=== PATIENT | male | born 1945 | race Two or more races ===

== ENCOUNTER 2020-03-06 17:24 | Inpatient (IN) | payer OTHER ==
[~2020-03-06] VITALS: Ht 167.6 cm; Wt 88.9 kg
[2020-03-06] MEDS ORDERED: CLOP75TA15 PO ×2 (17:36→17:39)
[2020-03-06] MEDS ORDERED: CARV25TA PO (17:39)
[2020-03-06] MEDS ORDERED: CHOL500050 PO (17:39)
[2020-03-06] MEDS ORDERED: HYDR-894 PO (18:00)
[2020-03-06] MEDS ORDERED: VENL37.591 PO (18:00)
[2020-03-06] MEDS ORDERED: SILD50TA PO (18:00)
[2020-03-06] MEDS ORDERED: DIVA125T2 PO (18:00)
[2020-03-06] MEDS ORDERED: POTA10CA43 PO (18:00)
[2020-03-06] MEDS ORDERED: METF-442 PO (18:00)
[2020-03-06] MEDS ORDERED: GLIP10TA11 PO (18:00)
[2020-03-06] MEDS ORDERED: MOME13HF IH (18:00)
[2020-03-06] MEDS ORDERED: MULT-594 PO (18:00)
[2020-03-06] MEDS ORDERED: LISI10TA5 PO (18:00)
[2020-03-06 18:36] LABS: *BILIRUBIN,URIN NEGATIVE (NEGATIVE); *BLOOD, URINE NEGATIVE (NEGATIVE); *CLARITY,URINE CLEAR (CLEAR); *COLOR,URINE YELLOW (YELLOW); *KETONES,URINE NEGATIVE (NEGATIVE); *UROBILINOGEN,URINE 0.2 E.U./dl (NORMAL); LEUKOCYTE ESTERASE ,URINE NEGATIVE (NEGATIVE); NITRITE, URINE NEGATIVE (NEGATIVE); PH,URINE 5.5 (5.0-8.0)
[2020-03-06 18:38] LABS: UGLUCOSE 1+ (NEGATIVE)
[2020-03-06 18:53] LABS: *AMPHETAMINE, URINE NEGATIVE (NEGATIVE); *CANNABINOID, URINE NEGATIVE (NEGATIVE); *COCCAINE, URINE NEGATIVE (NEGATIVE); *OPIATE, URINE NEGATIVE (NEGATIVE); *PHENCYCLIDINE SCREEN,URINE NEGATIVE (NEGATIVE)
[2020-03-06 19:02] LABS: BACTERIA,URINE NONE SEEN /HPF (NONE SEEN); RBC,URINE 0-3 /HPF (0-3); SQUAMOUS EPITHELIAL CELL,UR NONE SEEN /HPF (NONE SEEN); WBC,URINE 0-3 /HPF (0-3)
[2020-03-06 20:46] LABS: BASOPHILS # (AUTO) 0.2 K/uL (0.0-8.0); BASOPHILS % (AUTO) 2.7 % (0.0-2.0); EOSINOPHILS % (AUTO) 0.5 % (0.0-7.0); HEMATOCRIT 39.7 % (36.7-47.1); LYMPHOCYTES % (AUTO) 13.2 % (20.5-51.5); MEAN CORPUSCULAR HEMOGLOBIN 28.7 uug (23.8-33.4); MEAN CORPUSCULAR HGB CONC 33 g/dL (32.5-36.3); MEAN CORPUSCULAR VOLUME 87.5 fL (73.0-96.2); MONOCYTES # (AUTO) 0.4 K/uL (2.0-10.0); MONOCYTES % (AUTO) 5.8 % (0.0-11.0); NEUTROPHILS # (AUTO) 5.8 K/uL (1.8-8.9); NEUTROPHILS % (AUTO) 77.8 % (38.5-71.5); PLATELET COUNT (AUTO) 200 K/uL (152-348); RED BLOOD CELL COUNT(AUTO) 4.53 MIL/uL (4.06-5.63); WHITE BLOOD COUNT (AUTO) 7.4 K/uL (3.6-10.2)
[2020-03-06 20:54] LABS: CARBON DIOXIDE 28 mmol/L (21-32); CHLORIDE 102 mmol/L (98-107); CREATININE 0.9 mg/dL (0.6-1.3); GLUCOSE 153 mg/dL (74-106); POTASSIUM 4.3 mmol/L (3.5-5.1); UREA NITROGEN, BLOOD 18 mg/dL (7-18)
[2020-03-06 20:57] LABS: ETHANOL < 3 MG/DL (0-0)
[2020-03-06 21:00] LABS: ALANINE AMINOTRANSFERASE 44 U/L (16-63); ALKALINE PHOSPHATASE 115 U/L (50-136); ASPARTATE AMINOTRANSFERASE 19 U/L (15-37); BILIRUBIN,DIRECT 0.1 mg/dL (0.0-0.2); BILIRUBIN,TOTAL 0.4 mg/dL (0.2-1.0); TOTAL PROTEIN, SERUM 8.3 g/dL (6.4-8.2)
[2020-03-06 21:26] LABS: ACETAMINOPHEN < 2.0 ug/mL (10-30)
--- NOTE | 2020-03-06 21:30 | NUR ---
Pt. admitted to [facility] , under care of Dr. Hinds Belongs List completed. Report to TONNY Smith
[2020-03-06] MEDS ORDERED: LORAZEPAM 0.5 MG TABLET PO PRN (22:15)
[2020-03-06] MEDS ORDERED: MAG HYDROX/AL HYDROX/SIMETH 30 ML LIQUID UDC PO PRN (22:15)
[2020-03-06] MEDS ORDERED: MAGNESIUM HYDROXIDE 30 ML LIQUID UDC PO PRN (22:15)
[2020-03-06] MEDS ORDERED: BLOOD SUGAR DIAGNOSTIC 1 EACH STRIP VI ONE (22:15)
[2020-03-06 22:40] VITALS: BP 173/83
[2020-03-06] MEDS ORDERED: LISINOPRIL 10 MG TABLET PO SCH (23:00)
[2020-03-06] MEDS ORDERED: hydrALAZINE HCL 25 MG TABLET PO SCH (23:00)
[2020-03-06] MEDS: TEMAZEPAM 7.5 MG CAPSULE PO PRN (23:40)
[2020-03-07] MEDS ORDERED: hydrALAZINE HCL 25 MG TABLET ONE (00:01)
--- NOTE | 2020-03-07 02:02 | NUR ---
GPS: Admitted to unit earlier at 2200 a 74 yr.old male under the care and supervision of /CAROLIN Munoz in fair condition. Pt.is on a 72 hour hold for DTS/GD. Pt.stated that he wanted to end his life because of his physical pain and that he's been telling his licensed master social worker at the snf that he wants to get his family gun and end his life,per hold. Pt.strongly denied saying those things when asked by staff. Pt.is confused,disorganized,angry,uncooperative,irritable,argumentative during admission process. Refused to have body check done despite numerous attempts by staff. Refused to sign papers or hear staff's explanation regarding his reason for being admitted to the unit. Poor insight to present situation. Has unsteady gait and initially refusing to use a fww. Pts.advisement and pt's rights booklet handed to pt. Unit rules had to be explained several times. Needs anticipated. Denied pain at this time. Safety checks initiated. Will continue to re-direct prn.
--- NOTE | 2020-03-07 06:45 | NUR ---
GPS: Pt.slept 3.15 last night. Denied pain when asked. Got up x1 to go to the bathroom for elimination purposes. Reminded to use fww for ambulationl. Less irritable and argumentative. Re-directed prn. Denies wanting to hurt self.
[2020-03-07 07:30] VITALS: BP 160/83
[2020-03-07 08:23] LABS: BILIRUBIN,TOTAL 0.6 mg/dL (0.2-1.0); POTASSIUM 3.8 mmol/L (3.5-5.1); TOTAL PROTEIN, SERUM 7.6 g/dL (6.4-8.2)
[2020-03-07] MEDS: glipiZIDE 10 MG TABLET PO SCH ×2 (08:59→16:34)
[2020-03-07] MEDS: LISINOPRIL 10 MG TABLET PO SCH (08:59)
[2020-03-07] MEDS: CLOPIDOGREL 75 MG TABLET PO SCH (08:59)
[2020-03-07] MEDS: MULTIVITAMINS,THERAPEUTIC TABLET PO SCH (08:59)
[2020-03-07] MEDS: METFORMIN HCL 500 MG TABLET PO SCH ×2 (09:00→16:34)
[2020-03-07] MEDS: CARVEDILOL 25 MG TABLET PO SCH ×2 (09:00→20:12)
[2020-03-07] MEDS ORDERED: POTASSIUM CHLORIDE 10 MEQ TAB.PRT.SR PO SCH (09:00)
[2020-03-07] MEDS: hydrALAZINE HCL 25 MG TABLET PO SCH ×2 (09:01→16:34)
[2020-03-07] MEDS: CHOLECALCIFEROL 1,000 UNIT TABLET PO SCH (09:01)
[2020-03-07] MEDS: POTASSIUM CHLORIDE 20 MEQ TAB.PRT.SR PO SCH (12:07)
[2020-03-07] MEDS: ACETAMINOPHEN 325 MG TABLET PO PRN (12:33)
--- NOTE | 2020-03-07 12:53 | NUR ---
Firearms Report: System Operator completed and submitted a DOJ firearms report for 5150 danger to self and grave disability certification. A copy of report has been placed in patient chart.
--- NOTE | 2020-03-07 13:24 | NUR ---
SANDEE Initial Discharge Plan: Per 5150 states patient is from [facility]. This SW contacted patient's son Jimmy ([phone]) who stated patient will discharge back home upon discharge located at [address] [place] [id number]; ([phone]). This SW contacted [facility] ([phone]) and left a voicemail to Liliana to confirm. SW will coordinate proper discharge with MD and treatment team.
--- NOTE | 2020-03-07 13:24 | NUR ---
SANDEE Family Contact: SANDEE spoke with patient's son Jimmy ([phone]) to gather collateral and discussed treatment/discharge plan. Per son, upon discharge he would want pt back home.
--- NOTE | 2020-03-07 14:20 | NUR ---
UR Note: This SW contacted correctional case manager Jacqueline Tejada - / fax# [phone] clinicals. Per Jacqueline, she requires daily clinicals.
--- NOTE | 2020-03-07 14:55 | NUR ---
[facility] Contact: This SW spoke with Sharyn ([phone]) who stated pt lives at home and comes to [facility] to follow up with his primary doctor dr. Avila ([phone]).
--- NOTE | 2020-03-07 15:00 | NUR ---
Gps/Wood Calker- Patient verbalized adequate relief from his right knee pain,, was medicated with tylenol 650 mg. po, stayed in the activity group , had been quiet listening to the music. Krystin called earlier today wants to know progress of patient, informed of his present behavior and complaints.
--- NOTE | 2020-03-07 15:01 | NUR ---
SW Family Contact: SW spoke with patient's son Jimmy ([phone]) and discussed if there is guns in the house. The stated that pt is confused he just yells guns but they do not have guns in the house.
[2020-03-07] MEDS: DIVALPROEX 125 MG TABLET.DR PO SCH ×2 (15:25→16:35)
[2020-03-07 16:00] VITALS: BP 132/66
[2020-03-07] MEDS: FLUTICASONE/VILANTEROL 1 EACH BLST.W.DEV INH SCH (16:49)
--- NOTE | 2020-03-07 18:24 | NUR ---
Gps/Rn Gynecology- Had been cooperative with staff, discouraged patient from bitting the plastic spoons, claimed he needs a toothpick , offered toothbrush ,and toothpaste for his oral hygiene
[2020-03-07 20:00] VITALS: BP 158/75
[2020-03-08 07:30] VITALS: BP 148/79
[2020-03-08] MEDS: glipiZIDE 10 MG TABLET PO SCH ×2 (08:00→16:59)
[2020-03-08] MEDS: MULTIVITAMINS,THERAPEUTIC TABLET PO SCH (08:44)
[2020-03-08] MEDS: CLOPIDOGREL 75 MG TABLET PO SCH (08:44)
[2020-03-08] MEDS: METFORMIN HCL 500 MG TABLET PO SCH ×2 (08:44→17:00)
[2020-03-08] MEDS: CARVEDILOL 25 MG TABLET PO SCH ×2 (08:45→20:27)
[2020-03-08] MEDS: hydrALAZINE HCL 25 MG TABLET PO SCH ×2 (08:45→17:00)
[2020-03-08] MEDS: DIVALPROEX 125 MG TABLET.DR PO SCH ×3 (08:46→17:00)
[2020-03-08] MEDS: LISINOPRIL 10 MG TABLET PO SCH (08:46)
[2020-03-08] MEDS: POTASSIUM CHLORIDE 20 MEQ TAB.PRT.SR PO SCH (08:46)
[2020-03-08] MEDS: CHOLECALCIFEROL 1,000 UNIT TABLET PO SCH (08:47)
[2020-03-08] MEDS: FLUTICASONE/VILANTEROL 1 EACH BLST.W.DEV INH SCH (08:48)
[2020-03-08] MEDS: ACETAMINOPHEN 325 MG TABLET PO PRN (10:13)
--- NOTE | 2020-03-08 14:17 | NUR ---
UR Note: SANDEE faxed a clinical to [facility] with attn to Jacqueline ([phone]) to the fax number: [phone].
[2020-03-08 16:00] VITALS: BP 111/57
--- NOTE | 2020-03-08 17:30 | NUR ---
Gps/Director Of Instructional Technology- Ambulates around with front wheel walker, refused to eat dinner in the dinning room, stayed in his room. Had been cooperative with staff, safety reviewed and emphasized.
[2020-03-08 20:00] VITALS: BP 137/59
[2020-03-08] MEDS: DIVALPROEX 250 MG TABLET.DR PO SCH (20:27)
[2020-03-08] MEDS: TEMAZEPAM 7.5 MG CAPSULE PO PRN (20:32)
[2020-03-09] MEDS: glipiZIDE 10 MG TABLET PO SCH ×2 (06:33→16:29)
--- NOTE | 2020-03-09 06:43 | NUR ---
slept 8.5 hours. very cooperative, calm and no agitation, restlessness and compliant to his medications.
[2020-03-09 07:55] VITALS: BP 167/78
[2020-03-09] MEDS: CHOLECALCIFEROL 1,000 UNIT TABLET PO SCH (08:47)
[2020-03-09] MEDS: FLUTICASONE/VILANTEROL 1 EACH BLST.W.DEV INH SCH (08:47)
[2020-03-09] MEDS: MULTIVITAMINS,THERAPEUTIC TABLET PO SCH (08:48)
[2020-03-09] MEDS: LISINOPRIL 10 MG TABLET PO SCH (08:49)
[2020-03-09] MEDS: METFORMIN HCL 500 MG TABLET PO SCH ×2 (08:49→17:36)
[2020-03-09] MEDS: CARVEDILOL 25 MG TABLET PO SCH ×2 (08:50→20:31)
[2020-03-09] MEDS: DIVALPROEX 125 MG TABLET.DR PO SCH ×3 (08:50→16:29)
[2020-03-09] MEDS: hydrALAZINE HCL 25 MG TABLET PO SCH ×2 (08:50→16:30)
[2020-03-09] MEDS: CLOPIDOGREL 75 MG TABLET PO SCH (08:50)
[2020-03-09] MEDS: POTASSIUM CHLORIDE 20 MEQ TAB.PRT.SR PO SCH (08:51)
[2020-03-09] MEDS: HYDROCODONE/APAP 5-325MG TABLET PO PRN (12:52)
[2020-03-09 13:00] VITALS: BP 124/53
[2020-03-09] MEDS: DIVALPROEX 250 MG TABLET.DR PO SCH (20:31)
[2020-03-09 20:45] VITALS: BP 132/63
--- NOTE | 2020-03-10 06:19 | NUR ---
Slept 6.0 hours. Calm and cooperative. Self care and no complaint presented.
[2020-03-10] MEDS: glipiZIDE 10 MG TABLET PO SCH ×2 (06:44→16:55)
[2020-03-10 07:30] VITALS: BP 131/71
[2020-03-10] MEDS: METFORMIN HCL 500 MG TABLET PO SCH ×2 (08:54→18:00)
[2020-03-10] MEDS: DIVALPROEX 125 MG TABLET.DR PO SCH ×3 (08:54→16:55)
[2020-03-10] MEDS: CLOPIDOGREL 75 MG TABLET PO SCH (08:55)
[2020-03-10] MEDS: VITAMIN B COMPLEX 1 TABLET PO SCH (08:55)
[2020-03-10] MEDS: POTASSIUM CHLORIDE 20 MEQ TAB.PRT.SR PO SCH (08:55)
[2020-03-10] MEDS: CHOLECALCIFEROL 1,000 UNIT TABLET PO SCH (08:55)
[2020-03-10] MEDS: hydrALAZINE HCL 25 MG TABLET PO SCH ×2 (08:56→16:55)
[2020-03-10] MEDS: LISINOPRIL 10 MG TABLET PO SCH (08:56)
[2020-03-10] MEDS: CARVEDILOL 25 MG TABLET PO SCH ×2 (08:56→20:23)
[2020-03-10] MEDS: FLUTICASONE/VILANTEROL 1 EACH BLST.W.DEV INH SCH (08:57)
[2020-03-10] MEDS: HYDROCODONE/APAP 5-325MG TABLET PO PRN (11:48)
[2020-03-10 15:49] VITALS: BP 110/44
[2020-03-10 20:00] VITALS: BP 163/81
[2020-03-10] MEDS: DIVALPROEX 250 MG TABLET.DR PO SCH (20:27)
[2020-03-11] MEDS: glipiZIDE 10 MG TABLET PO SCH ×2 (06:21→16:41)
--- NOTE | 2020-03-11 06:50 | NUR ---
Slept 5.30 hours.
[2020-03-11 08:00] VITALS: BP 146/59
[2020-03-11] MEDS: VITAMIN B COMPLEX 1 TABLET PO SCH (09:19)
[2020-03-11] MEDS: CLOPIDOGREL 75 MG TABLET PO SCH (09:19)
[2020-03-11] MEDS: CHOLECALCIFEROL 1,000 UNIT TABLET PO SCH (09:19)
[2020-03-11] MEDS: DIVALPROEX 125 MG TABLET.DR PO SCH ×3 (09:19→16:41)
[2020-03-11] MEDS: FLUTICASONE/VILANTEROL 1 EACH BLST.W.DEV INH SCH (09:19)
[2020-03-11] MEDS: LISINOPRIL 10 MG TABLET PO SCH (09:20)
[2020-03-11] MEDS: METFORMIN HCL 500 MG TABLET PO SCH ×2 (09:20→17:36)
[2020-03-11] MEDS: POTASSIUM CHLORIDE 20 MEQ TAB.PRT.SR PO SCH (09:20)
[2020-03-11] MEDS: hydrALAZINE HCL 25 MG TABLET PO SCH ×2 (09:21→16:42)
[2020-03-11] MEDS: CARVEDILOL 25 MG TABLET PO SCH ×2 (09:21→20:10)
[2020-03-11] MEDS: HYDROCODONE/APAP 5-325MG TABLET PO PRN (09:42)
--- NOTE | 2020-03-11 10:56 | NUR ---
UR Note: This SW faxed outpatient case manager Jacqueline Ashley [facility] - / fax# [phone] clinicals. Per Jacqueline, she requires daily clinicals.
[2020-03-11 15:22] VITALS: BP 131/56
[2020-03-11 20:00] VITALS: BP 115/77
[2020-03-11] MEDS: DIVALPROEX 250 MG TABLET.DR PO SCH (20:03)
[2020-03-12 07:13] LABS: BASOPHILS % (AUTO) 0.2 % (0.0-2.0); EOSINOPHILS % (AUTO) 0.2 % (0.0-7.0); HEMATOCRIT 35.8 % (36.7-47.1); HEMOGLOBIN 11.9 g/dL (12.5-16.3); LYMPHOCYTES # (AUTO) 1.6 K/uL (20.0-40.0); LYMPHOCYTES % (AUTO) 25.5 % (20.5-51.5); MEAN CORPUSCULAR HEMOGLOBIN 28.9 uug (23.8-33.4); MEAN CORPUSCULAR HGB CONC 33 g/dL (32.5-36.3); MEAN CORPUSCULAR VOLUME 86.8 fL (73.0-96.2); MONOCYTES # (AUTO) 0.5 K/uL (2.0-10.0); MONOCYTES % (AUTO) 8.7 % (0.0-11.0); NEUTROPHILS # (AUTO) 4.1 K/uL (1.8-8.9); NEUTROPHILS % (AUTO) 65.4 % (38.5-71.5); PLATELET COUNT (AUTO) 170 K/uL (152-348); RED BLOOD CELL COUNT(AUTO) 4.12 MIL/uL (4.06-5.63); WHITE BLOOD COUNT (AUTO) 6.2 K/uL (3.6-10.2)
[2020-03-12 07:16] LABS: BILIRUBIN,TOTAL 0.3 mg/dL (0.2-1.0); POTASSIUM 4.3 mmol/L (3.5-5.1); TOTAL PROTEIN, SERUM 6.7 g/dL (6.4-8.2)
[2020-03-12] MEDS: METFORMIN HCL 500 MG TABLET PO SCH ×2 (09:33→17:16)
[2020-03-12] MEDS: VITAMIN B COMPLEX 1 TABLET PO SCH (09:33)
[2020-03-12] MEDS: POTASSIUM CHLORIDE 20 MEQ TAB.PRT.SR PO SCH (09:33)
[2020-03-12] MEDS: glipiZIDE 10 MG TABLET PO SCH ×2 (09:33→16:26)
[2020-03-12] MEDS: CHOLECALCIFEROL 1,000 UNIT TABLET PO SCH (09:33)
[2020-03-12] MEDS: CLOPIDOGREL 75 MG TABLET PO SCH (09:34)
[2020-03-12] MEDS: DIVALPROEX 125 MG TABLET.DR PO SCH ×2 (09:34→12:51)
[2020-03-12] MEDS: CARVEDILOL 25 MG TABLET PO SCH ×2 (09:36→20:07)
[2020-03-12] MEDS: hydrALAZINE HCL 25 MG TABLET PO SCH ×2 (09:36→16:26)
[2020-03-12] MEDS: FLUTICASONE/VILANTEROL 1 EACH BLST.W.DEV INH SCH (09:37)
[2020-03-12] MEDS: LISINOPRIL 10 MG TABLET PO SCH (09:38)
--- NOTE | 2020-03-12 11:50 | NUR ---
UR Note: SW called and left a voicemail for Jacqueline Tejada ( fax#: [phone]) to call this social and political studies professor back regarding authorization and to discuss discharge planning.
--- NOTE | 2020-03-12 12:53 | NUR ---
SANDEE NOTE/UR NOTE: SANDEE received notice from the psychiatrist that the patient has been calling his and telling her "it's your fault that I am here". Dr. Hinds stated that the insurance [facility] is aware of this and is concerned if the patient is discharged too soon. SANDEE spoke with Carole registered nurse hh case manager at [facility] ([phone]) and discussed this concern. Carole stated that the patient will continue to be authorized until he is stable ad safe to go home. Authorization #[id number] Addendum: 03/12/20 at 1553 by LOUISE DURON SANDEE also faxed updated clinicals for today.
[2020-03-12] MEDS: HYDROCODONE/APAP 5-325MG TABLET PO PRN (13:02)
--- NOTE | 2020-03-12 14:39 | NUR ---
SANDEE PC Hearing: Patient had probable cause hearing today and it was upheld for danger to self and grave disability.
[2020-03-12 15:42] VITALS: BP 111/50
[2020-03-12 20:00] VITALS: BP 131/81
[2020-03-12] MEDS: DIVALPROEX 250 MG TABLET.DR PO SCH (20:06)
[2020-03-13 07:30] VITALS: BP 175/85
[2020-03-13] MEDS: glipiZIDE 10 MG TABLET PO SCH ×2 (07:43→16:02)
--- NOTE | 2020-03-13 08:00 | NUR ---
received patient AOx4, walking with fww patient calm cooperative, compliant with medication, denies SI and HI, patient VS WNL, pain meds given as needed, patient no sign of distress
[2020-03-13] MEDS: CLOPIDOGREL 75 MG TABLET PO SCH (08:07)
[2020-03-13] MEDS: DIVALPROEX 125 MG TABLET.DR PO SCH ×2 (08:08→12:16)
[2020-03-13] MEDS: METFORMIN HCL 500 MG TABLET PO SCH ×2 (08:08→17:00)
[2020-03-13] MEDS: POTASSIUM CHLORIDE 20 MEQ TAB.PRT.SR PO SCH (08:08)
[2020-03-13] MEDS: hydrALAZINE HCL 25 MG TABLET PO SCH ×2 (08:09→16:04)
[2020-03-13] MEDS: FLUTICASONE/VILANTEROL 1 EACH BLST.W.DEV INH SCH (08:09)
[2020-03-13] MEDS: CHOLECALCIFEROL 1,000 UNIT TABLET PO SCH (08:10)
[2020-03-13] MEDS: CARVEDILOL 25 MG TABLET PO SCH ×2 (08:11→20:16)
[2020-03-13] MEDS: VITAMIN B COMPLEX 1 TABLET PO SCH (08:11)
[2020-03-13] MEDS: LISINOPRIL 10 MG TABLET PO SCH (08:12)
[2020-03-13] MEDS: HYDROCODONE/APAP 5-325MG TABLET PO PRN (09:33)
--- NOTE | 2020-03-13 10:07 | NUR ---
UR Note: This SW faxed lining caser [facility]queline [facility] [place] / fax# [phone] clinicals. Per Jacqueline, she requires daily clinicals.
[2020-03-13 16:06] VITALS: BP 100/64
--- NOTE | 2020-03-13 17:54 | NUR ---
patient been quiet, calm cooperative, patient compliant with medication denies SI and HI, seen walking around the hallway , monitored q15 minutes for safety, no sign of any distress at this time
[2020-03-13 19:51] VITALS: BP 127/70
[2020-03-13] MEDS: DIVALPROEX 250 MG TABLET.DR PO SCH (20:16)
--- NOTE | 2020-03-14 05:36 | NUR ---
Received patient in his room, calm and cooperative, isolative, mostly stays in his room, interacts to certain peers and staff, med compliant, has semi fair judgement and poor insight. Patient will remain in a psych facility for further evaluation and treatment.
[2020-03-14] MEDS: glipiZIDE 10 MG TABLET PO SCH ×2 (06:34→16:27)
--- NOTE | 2020-03-14 07:05 | NUR ---
Received patient AOx3-4, patient calm, cooperative, compliant with medications, denies SI and HI, patient free of injury , assisted with ADLS, patient verbalizes pain, pain medication given , monitored for safety every 15 minutes
[2020-03-14 07:30] VITALS: BP 120/60
[2020-03-14] MEDS: CLOPIDOGREL 75 MG TABLET PO SCH (08:08)
[2020-03-14] MEDS: POTASSIUM CHLORIDE 20 MEQ TAB.PRT.SR PO SCH (08:08)
[2020-03-14] MEDS: METFORMIN HCL 500 MG TABLET PO SCH ×2 (08:08→17:03)
[2020-03-14] MEDS: CHOLECALCIFEROL 1,000 UNIT TABLET PO SCH (08:08)
[2020-03-14] MEDS: DIVALPROEX 125 MG TABLET.DR PO SCH (08:08)
[2020-03-14] MEDS: VITAMIN B COMPLEX 1 TABLET PO SCH (08:09)
[2020-03-14] MEDS: LISINOPRIL 10 MG TABLET PO SCH (08:09)
[2020-03-14] MEDS: FLUTICASONE/VILANTEROL 1 EACH BLST.W.DEV INH SCH (08:10)
[2020-03-14] MEDS: hydrALAZINE HCL 25 MG TABLET PO SCH ×2 (08:10→16:29)
[2020-03-14] MEDS: CARVEDILOL 25 MG TABLET PO SCH ×2 (08:11→20:53)
[2020-03-14] MEDS: HYDROCODONE/APAP 5-325MG TABLET PO PRN (11:06)
--- NOTE | 2020-03-14 11:12 | NUR ---
SW Family Contact: This SW spoke with patient's son Jimmy ([phone]) who stated will picking tech patient tomorrow at 12pm.
--- NOTE | 2020-03-14 13:48 | NUR ---
UR Note: This SW faxed telephonic nurse case manager [facility] / fax# [phone] clinicals. Per Jacqueline, she requires daily clinicals.
--- NOTE | 2020-03-14 13:56 | NUR ---
SW Coordination of Care: This SW contacted patient's primary doctor office Dr. Sheehan ([phone]) this SW left a voicemail with [facility] and requested an appointment for patient as pt will be discharged tomorrow. This SW left son Jimmy ([phone]) to contact for scheduled appointment. This SW also requested if primary doctor an refer pt to a psychiatrist through his accepting insurance.
[2020-03-14 15:57] VITALS: BP 131/79
--- NOTE | 2020-03-14 17:36 | NUR ---
patient been calm, cooperative, denies SI and HI, compliant with medication, monitored for safety ,assisted with ADLs , no sign of distress
[2020-03-14 20:00] VITALS: BP 163/70
[2020-03-14 21:00] VITALS: BP 155/63
[2020-03-14] MEDS ORDERED: DIVALPROEX 250 MG TABLET.DR PO SCH (21:00)
--- NOTE | 2020-03-15 06:11 | NUR ---
GPS: Patient remain AOx4, calm, cooperative, compliant with medications, denies SI and HI, patient free of injury , assisted with ADLS, slept 8.45 hrs through the night.monitored for safety every 15 minutes.
[2020-03-15 07:30] VITALS: BP 131/44
[2020-03-15] MEDS ORDERED: DIVALPROEX 125 MG TABLET.DR PO SCH (08:00)
--- NOTE | 2020-03-15 08:08 | NUR ---
SW Discharge Note: Patient will be discharged [place] [address] [place] [address] ([phone]). Patients son Jimmy ([phone]) will pick up operator patient at 12pm. Patient is aware and agree able with discharge. Patient is alert and oriented x3. Patient denies suicidal or homicidal ideation. Pt denies visual/auditory hallucinations. Patient will follow up with [facility] Dr. Sheehan ([phone]) [place] [address]. SW contacted patient's primary doctor office Dr. Sheehan ([phone]) this SW left a voicemail with Adriana worker and requested an appointment for patient as pt is being discharged. This SW left son Jimmy ([phone]) to contact for scheduled appointment. Patient will also be following up with his psychiatrist Dr. Hinds at the [address] [address] ([phone]).
[2020-03-15] MEDS: glipiZIDE 10 MG TABLET PO SCH (09:25)
[2020-03-15] MEDS: POTASSIUM CHLORIDE 20 MEQ TAB.PRT.SR PO SCH (09:26)
[2020-03-15] MEDS: CHOLECALCIFEROL 1,000 UNIT TABLET PO SCH (09:26)
[2020-03-15] MEDS: VITAMIN B COMPLEX 1 TABLET PO SCH (09:26)
[2020-03-15] MEDS: METFORMIN HCL 500 MG TABLET PO SCH (09:27)
[2020-03-15] MEDS: LISINOPRIL 10 MG TABLET PO SCH (09:27)
[2020-03-15] MEDS: CLOPIDOGREL 75 MG TABLET PO SCH (09:27)
[2020-03-15] MEDS: FLUTICASONE/VILANTEROL 1 EACH BLST.W.DEV INH SCH (09:36)
[2020-03-15] MEDS: hydrALAZINE HCL 25 MG TABLET PO SCH (09:37)
[2020-03-15 09:53] VITALS: BP 131/44
[2020-03-15] MEDS: CARVEDILOL 25 MG TABLET PO SCH (09:53)
[2020-03-15 11:27] LABS: BILIRUBIN,TOTAL 0.5 mg/dL (0.2-1.0); POTASSIUM 4.3 mmol/L (3.5-5.1); TOTAL PROTEIN, SERUM 7.3 g/dL (6.4-8.2)
[2020-03-15] MEDS: HYDROCODONE/APAP 5-325MG TABLET PO PRN (11:29)
[2020-03-15 11:40] LABS: BASOPHILS % (AUTO) 0.3 % (0.0-2.0); EOSINOPHILS % (AUTO) 0.1 % (0.0-7.0); HEMATOCRIT 39.3 % (36.7-47.1); HEMOGLOBIN 12.7 g/dL (12.5-16.3); LYMPHOCYTES # (AUTO) 1.1 K/uL (20.0-40.0); LYMPHOCYTES % (AUTO) 18.4 % (20.5-51.5); MEAN CORPUSCULAR HEMOGLOBIN 28.3 uug (23.8-33.4); MEAN CORPUSCULAR HGB CONC 32 g/dL (32.5-36.3); MEAN CORPUSCULAR VOLUME 87.9 fL (73.0-96.2); MONOCYTES # (AUTO) 0.5 K/uL (2.0-10.0); MONOCYTES % (AUTO) 7.6 % (0.0-11.0); NEUTROPHILS # (AUTO) 4.4 K/uL (1.8-8.9); NEUTROPHILS % (AUTO) 73.6 % (38.5-71.5); PLATELET COUNT (AUTO) 178 K/uL (152-348); RED BLOOD CELL COUNT(AUTO) 4.47 MIL/uL (4.06-5.63)
--- NOTE | 2020-03-15 13:45 | NUR ---
Gps/power switchboard operator- Reviewed discharged instructions. with patient, Stacey ESTRADA in to see patient, was informed of the discharged plan, prescriptions obtained, reviewed with patient, safety emphasized, follow up with his primary Doctor, verbalized understanding. All belongings given back to patient. No new complaints noted. 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
--- NOTE | 2020-03-15 14:07 | NUR ---
Gps/Coating And Baking Operator- Discharged home via private car accompanied by his son. patient in good spirit. No S.I/no HI noted. patient verbalized understanding of all the discharge instructions.
== END 2020-03-15 14:25 | disposition home or self-care (01) | DRG 885 ==
LOC: ER 17:27 → GPS 21:54
PROVIDERS: ADMIT Psychiatry & Neurology Psychosomatic Medicine; ATTEND Nurse Practitioner Acute Care
DX: F25.0 Schizoaffective disorder, bipolar type (principal); F01.50 Vascular dementia, unspecified severity, without behavioral disturbance, psychotic disturbance, mood disturbance, and anxiety; I11.0 Hypertensive heart disease with heart failure; E11.65 Type 2 diabetes mellitus with hyperglycemia; I48.20 Chronic atrial fibrillation, unspecified; R45.851 Suicidal ideations; F23 Brief psychotic disorder; I69.351 Hemiplegia and hemiparesis following cerebral infarction affecting right dominant side; J44.9 Chronic obstructive pulmonary disease, unspecified; Z20.828 Contact with and (suspected) exposure to other viral communicable diseases; N40.0 Benign prostatic hyperplasia without lower urinary tract symptoms; I50.9 Heart failure, unspecified; Z20.822 Contact with and (suspected) exposure to COVID-19; F41.9 Anxiety disorder, unspecified; I25.10 Atherosclerotic heart disease of native coronary artery without angina pectoris; Z79.02 Long term (current) use of antithrombotics/antiplatelets; Z79.84 Long term (current) use of oral hypoglycemic drugs; Z96.653 Presence of artificial knee joint, bilateral
CPT/HCPCS: 36415; 80164; 85025; A4663; G0480; J3490